=== PATIENT | female | born 1975 | race Caucasian/White ===

== ENCOUNTER → 2016-08-05 | Outpatient (CLI) | payer BC ==
--- OUTSIDE RECORDS SUMMARY | 2016-08-05 09:21 | XMS REPORT | Continuity of Care Document ---
Author Author [facility] Organization [facility] Address Unknown Phone Unavailable Allergies Medications Problems Date Dx Coded Attending Type Code Diagnosis Diagnosed By 08/15/2014 Ot V76.12 08/05/2015 KELVIN BERRY MD Ot V76.12 08/05/2015 Ot V76.12 08/05/2015 CAMILLE MENDEZ APRN Ot Z12.31 08/20/2015 CAMILLE MENDEZ APRN Ot Z12.31 Procedures Results Encounters ACCT No. Visit Date/Time Discharge Status Pt. Type Provider Facility Loc./Unit Complaint [id number] 03/21/2013 09:02:00 2012 23:59:59 CLS Outpatient KELVIN BERRY MD [facility] RAD [id number] 08/05/2015 09:51:00 ACT Outpatient CAMILLE MENDEZ APRN [facility] RAD [id number] 08/01/2014 14:28:00 Document Registration
--- NOTE | 2016-08-06 18:23 | Diagnostic Imaging Report ---
Bilateral screening mammogram. The current study was also evaluated with a Computer Aided Detection (CAD) system. INDICATION: Screening. No current complaints stated on the questionnaire. COMPARISON: 08/05/2015. FINDINGS: The breasts are composed of scattered fibroglandular densities. There are occasional benign-appearing calcifications. Allowing for technique and positional differences, no suspicious change is seen. IMPRESSION: No significant change. ACR BI-RADS Category 2: Benign findings. Result letter will be mailed to the patient. Note: At least 10% of breast cancer is not imaged by mammography. Dictated by: Dictated on workstation # [id number]
== END ==
LOC: RAD 09:18
PROVIDERS: ATTEND Family Medicine
DX: Z12.31 Encounter for screening mammogram for malignant neoplasm of breast (principal)
CPT/HCPCS: 77067

== ENCOUNTER → 2017-08-08 | Outpatient (CLI) | payer BC ==
--- NOTE | 2017-08-08 13:08 | Diagnostic Imaging Report ---
INDICATION: Routine screening. COMPARISON: 08/05/2016, 08/05/2015. TECHNIQUE: Screening digital mammography was performed bilaterally with a Computer Aided Detection (CAD) system. FINDINGS: Scattered fibroglandular densities are identified bilaterally. The overall parenchymal pattern appears to be stable. No dominant mass or malignant appearing microcalcifications are seen. The axillae are unremarkable. IMPRESSION: No mammographic features suspicious for malignancy are identified. ACR BI-RADS Category 1: Negative. Result letter will be mailed to the patient. Note: At least 10% of breast cancer is not imaged by mammography. Dictated by: Dictated on workstation # [id number]
== END ==
LOC: RAD 10:16
PROVIDERS: ATTEND Nurse Practitioner Family
DX: Z12.31 Encounter for screening mammogram for malignant neoplasm of breast (principal)
CPT/HCPCS: 77067

== ENCOUNTER → 2018-08-25 | Outpatient (CLI) | payer BC ==
--- NOTE | 2018-08-29 10:00 | Diagnostic Imaging Report ---
EXAMINATION: Digital mammogram bilateral screening with 3D tomosynthesis and CAD. INDICATION: Screening. COMPARISON: This study is compared to the prior exams of 08/08/2017, 08/05/2016, and 08/05/2015. PERSONAL HISTORY: At this time, there are no current complaints. FINDINGS: The fibroglandular tissue in both breasts is heterogeneously dense. This does limit the sensitivity of this exam. In the interval since the prior study, a small group of microcalcifications has developed in the 12 o'clock position of the left breast roughly 12 cm from the nipple. These calcifications have a generally benign appearance but I would recommend that a compression/magnification view be obtained to better characterize them. Also, in the 3 o'clock position of the left breast at posterior depth, there is a 1 cm vague area of increased density. This may merely be secondary to fibroglandular tissue alone but I would recommend that a compression view of this area be obtained as well. If this density persists, then ultrasound may be necessary as well. The right breast is unchanged. IMPRESSION: Additional mammographic views of the left breast would be recommended for further study. Ultrasound may also be necessary. ACR BI-RADS Category 0: Incomplete. (Needs additional imaging evaluation). Result letter will be mailed to the patient. Note: At least 10% of breast cancer is not imaged by mammography. Dictated on workstation # [id number]
== END ==
LOC: RAD 15:08
PROVIDERS: ATTEND Nurse Practitioner Family
DX: Z12.31 Encounter for screening mammogram for malignant neoplasm of breast (principal)
CPT/HCPCS: 77067

== ENCOUNTER → 2018-09-07 | Outpatient (CLI) | payer BC ==
--- NOTE | 2018-09-07 20:50 | Diagnostic Imaging Report ---
INDICATION: Left breast calcifications and left breast density. Patient presents for additional views. COMPARISON: Correlation is made with recent screening study from 08/25/2018. EXAMINATION: Conventional 90 degree lateral view as well as magnification CC and MLO as well as spot compression ML views were obtained. FINDINGS: Calcifications in the upper aspect of the left breast appear to be round and benign. No pleomorphism is seen. Density in the lower outer left breast is noted approximately 9 cm from the nipple. This does persist on additional views. Further evaluation with ultrasound is recommended and will be performed today. IMPRESSION: 1. Benign calcifications in the superior left breast. 2. Persistent nodular density in the slightly lower outer left breast, 9 cm from nipple. Further evaluation with ultrasound is recommended. ACR BI-RADS Category 0: Incomplete. (Needs additional imaging evaluation). Result letter will be mailed to the patient. Note: At least 10% of breast cancer is not imaged by mammography. Dictated by: Dictated on workstation # [id number]
--- NOTE | 2018-09-07 20:56 | Diagnostic Imaging Report ---
INDICATION: Abnormal left mammogram. This study was performed for further evaluation. COMPARISON: Correlation is made with a diagnostic mammogram earlier the same day as well as the screening mammogram from 08/25/2018. EXAMINATION: Sonographic interrogation of the outer left breast was performed. There is a cystic-appearing mass at the 3:30 location, 7 cm from the nipple. This most likely represents either a septated cyst versus a cluster of cysts. In aggregate, this measures 11 mm x 4 mm x 6 mm. No posterior acoustic shadowing is present. There is mild posterior acoustic enhancement present. No internal vascularity is present. IMPRESSION: A cluster of cysts versus a complex cyst at the 3:30 location in the left breast, 7 cm from the nipple. This correlates in size and location to the mammographic nodule. This has fairly benign features. Even so, followup left mammogram and left breast ultrasound in six months is recommended to assure stability. ACR BI-RADS Category 3: Probably benign findings. Result letter will be mailed to the patient. Note: At least 10% of breast cancer is not imaged by mammography. Dictated by: Dictated on workstation # [id number]
== END ==
LOC: RAD 08:03
PROVIDERS: ATTEND Nurse Practitioner Family
DX: R92.1 Mammographic calcification found on diagnostic imaging of breast (principal); R92.2 Inconclusive mammogram
CPT/HCPCS: 76642

== ENCOUNTER → 2019-03-02 | Outpatient (CLI) | payer BC ==
--- NOTE | 2019-03-02 13:22 | Diagnostic Imaging Report ---
Indication: Six-month followup of a left breast density. Correlation is made with prior exam from 08/25/2018 and 08/08/2017. Unilateral left 2-D and 3-D diagnostic mammography was performed with CAD. Scattered fibroglandular densities are noted bilaterally. Area of density in the outer portion left breast mid depth appears stable. No new mass or malignant-appearing microcalcifications are seen. There are benign calcified conditions noted. Left axilla is unremarkable. IMPRESSION: BI-RADS 0 Stable left mammogram. Followup left breast ultrasound is recommended and will be performed today. Dictated by: Dictated on workstation # [id number]
--- NOTE | 2019-03-02 13:51 | Diagnostic Imaging Report ---
INDICATION: Six-month follow-up left breast cyst. Correlation is made with prior ultrasound from 09/07/2018 and diagnostic mammogram performed earlier today. Previously noted septated cyst versus cluster of cysts in the 3:30 location 7 cm from the nipple is again noted measuring 11 mm x 7 mm x 4 mm, unchanged. An additional slightly complex cyst is seen 3:00 location 7 cm from the nipple measuring 5 mm x 6 mm x 2 mm. No other masses are detected. IMPRESSION: BI-RADS Category 3 Stable left breast ultrasound. Cluster of cysts 3:30 location appears stable. Additional 6 month follow-up left mammogram and left breast ultrasound is recommended to show continued stability. ACR BI-RADS Category 3: Probably benign findings. Dictated by: Dictated on workstation # [id number]
== END ==
LOC: RAD 12:57
PROVIDERS: ATTEND Nurse Practitioner Family
DX: N60.02 Solitary cyst of left breast (principal)
CPT/HCPCS: 76642

== ENCOUNTER → 2019-09-27 | Outpatient (CLI) | payer BC ==
--- NOTE | 2019-09-27 11:01 | Diagnostic Imaging Report ---
Left breast ultrasound limited. INDICATION: Followup exam left breast cyst. FINDINGS: Previous left breast ultrasound exam of 03/02/2019 noted a cluster of cysts in the 3:30 position of the left breast. The cyst seemed stable when compared to the prior exam of 09/07/2018. On this study those cysts are again evident and do not seem to have changed significantly. I do suspect that they are benign. The diagnostic mammogram performed earlier today noted a small benign-appearing oval density in the far lateral aspect of the left breast. The ultrasound examination of this area fails to show any discrete solid or cystic mass. I suspect that the density seen on the mammogram was related to fibroglandular tissue or to a benign process. Even so, a short-term (6 month) followup mammogram and ultrasound exam of the left breast will be recommended for continued evaluation. IMPRESSION: 1. The cluster of cysts in the 3:30 position of the breast seen previously does not appear to have changed significantly. Most likely these are benign. 2. There is no sonographic abnormality to correspond to the neodensity seen on the mammogram. Recommendations as above. ACR BI-RADS Category 3: Probably benign findings. Result letter will be mailed to the patient. Note: At least 10% of breast cancer is not imaged by mammography. Dictated by: Dictated on workstation # [id number]
--- NOTE | 2019-09-27 13:35 | Diagnostic Imaging Report ---
Digital mammogram, bilateral diagnostic. Indication: Followup left breast cyst. This study was compared to the prior exams of 03/02/2019 08/25/2018, 08/08/2017 and 08/05/2016. At this time there are no current complaints. The fibroglandular tissue in both breasts is heterogeneously dense. This does limit the sensitivity of this exam. The screening mammogram performed on 08/25/2018 noted a 1 cm vague area of increased density in the 3 o'clock position of the left breast at posterior depth. This was subsequently shown to represent a cluster of cysts by ultrasound exam of 09/07/2018. These findings appear stable on the follow-up mammogram and ultrasound exam of 03/02/2019. On this exam that density is again evident and does not appear to have changed significantly. Ultrasound is pending for further study. In the interval since the prior exam, a small 7 mm fairly well circumscribed nodular density has developed in the lateral aspect of the left breast approximately 13 cm from the nipple. This density is only seen on the cc view. On the compression views of this area, this density seems to persist on one view but not on another. It does seem to be fairly well defined on the tomographic images. I would recommend that ultrasound of this portion of the breast be performed for further study. The right breast is stable. Impression: 1. The nodular density in the left breast seen previously appears stable. There is also a new neodensity in the lateral aspect of the left breast. Ultrasound would be recommended for further evaluation of both these findings. 2. The right breast is unchanged. ACR BI-RADS Category 0: Incomplete. (Needs additional imaging evaluation). Result letter will be mailed to the patient. Note: At least 10% of breast cancer is not imaged by mammography. Dictated by: Dictated on workstation # [id number]
== END ==
LOC: RAD 09:03
PROVIDERS: ATTEND Nurse Practitioner Family
DX: Z09 Encounter for follow-up examination after completed treatment for conditions other than malignant neoplasm (principal); N60.02 Solitary cyst of left breast
CPT/HCPCS: 76642; 77062; 77066

== ENCOUNTER → 2020-05-05 | Outpatient (CLI) | payer BC ==
--- NOTE | 2020-05-05 20:48 | Diagnostic Imaging Report ---
Ultrasound left wrist, limited. INDICATION: Indication abnormal mammogram The left breast ultrasound exam performed on 09/07/2018 noted a cluster of cysts in the 3:30 position of the left breast approximately 7 cm from the nipple. These findings appeared stable on the subsequent ultrasound examinations of 03/02/2019 and 09/27/2019. On this exam, the hypoechoic area with internal echoes in the 3:30 position of the left breast seen previously is again evident and does not appear to have changed significantly. This is most likely due to a cyst which has been complicated by infection and/or hemorrhage. I would recommend the patient have a six-month follow-up ultrasound exam when she has her annual bilateral screening mammogram in September/October of next year. If this area appears stable on the follow-up exam, then no further imaging surveillance would be required. IMPRESSION: The small hypoechoic area with internal echoes seen previously is again evident and appears stable. Most likely this is a benign process. Recommendations as above. ACR BI-RADS Category 3: Probably benign findings. Result letter will be mailed to the patient. Note: At least 10% of breast cancer is not imaged by mammography. Dictated by: Dictated on workstation # [id number]
--- NOTE | 2020-05-05 22:00 | Diagnostic Imaging Report ---
EXAM: Diagnostic left mammogram INDICATION: Follow-up nodular density The previous diagnostic mammogram and ultrasound exams of 09/27/2019 noted a stable appearing nodular density in the midportion of the left breast. There was also a small neodensity along the lateral aspect of the left breast. Those findings are again evident on this study have not hanged significantly. The fibroglandular tissue in the left breast is heterogeneously dense and this does limit the sensitivity of this exam. Overall, there has been no significant change. There is no primary or secondary sign of malignancy noted. IMPRESSION: 1. The appearance of the left breast is stable when compared to the prior exam. 2. Ultrasound is pending for further study. ACR BI-RADS Category 0: Incomplete. (Needs additional imaging evaluation). Result letter will be mailed to the patient. Note: At least 10% of breast cancer is not imaged by mammography. Dictated by: Dictated on workstation # [id number]
== END ==
LOC: RAD 12:45
PROVIDERS: ATTEND Nurse Practitioner Family
DX: R92.2 Inconclusive mammogram (principal)
CPT/HCPCS: 76642; 77065; G0279

== ENCOUNTER → 2021-04-06 | Outpatient (CLI) | payer BC ==
--- NOTE | 2021-04-06 13:38 | Diagnostic Imaging Report ---
Indication: Left breast density, follow-up. Correlation is made with prior mammogram 05/05/2020, 09/27/2019 and 03/02/2019. 2-D and 3-D bilateral dynastic mammography was performed with CAD. The density in the lateral left breast appears less prominent on today's study. Sonographically this appear to represent a cluster of cysts. No new mass is seen. No malignant-appearing microcalcifications are identified. There are benign calcifications present. Axillae are unremarkable. IMPRESSION: Density in the lateral left breast is less prominent on today's study, perhaps diminution of cirrhosis. Further evaluation this area with ultrasound is recommended and will be performed today. No new abnormalities detected. BI-RADS 0 ACR BI-RADS Category 0: Incomplete. (Needs additional imaging evaluation). Result letter will be mailed to the patient. Note: At least 10% of breast cancer is not imaged by mammography. Dictated by: Dictated on workstation # [id number]
--- NOTE | 2021-04-06 15:05 | Diagnostic Imaging Report ---
INDICATION: Left breast cluster of cysts. Patient presents for follow-up. CORRELATION is made with diagnostic mammogram earlier the same day and prior left breast ultrasound from 05/05/2020. Previously noted cluster of cysts at the 3:30 location of the left breast, 7 cm from the nipple does appear to be slightly smaller, measuring 1.0 x 0.3 x 0.7 cm compared with 1.1 x 0.4 x 0.7 cm. No internal vascularity is present. No new abnormality is identified. IMPRESSION: BI-RADS Category 2 Stable to perhaps slight decrease in size of cluster of cysts at the 3:30 location in the left breast, 7 cm from the nipple. This now shows 2-1/2 years of stability. The patient may return to routine annual screening mammography. Dictated by: Dictated on workstation # [id number]
== END ==
LOC: RAD 12:58
PROVIDERS: ATTEND Nurse Practitioner Family
DX: N60.02 Solitary cyst of left breast (principal)
CPT/HCPCS: 76642; 77066; G0279; 77062

== ENCOUNTER 2022-04-28 22:48 | Emergency (ER) | payer BC ==
[~2022-04-28] VITALS: Ht 160 cm; Wt 90.7 kg
[2022-04-28 23:13] LABS: BASOPHILS # (AUTO) 0.1 10^3/uL (0.0-0.1); BASOPHILS % (AUTO) 0 % (0-10); EOSINOPHILS # (AUTO) 0.1 10^3/uL (0.0-0.3); EOSINOPHILS % (AUTO) 1 % (0-10); HEMATOCRIT 42 % (35-52); HEMOGLOBIN 14.8 g/dL (11.5-16.0); LYMPHOCYTES % (AUTO) 16 % (12-44); MEAN CORPUSCULAR HEMOGLOBIN 31 pg (25-34); MEAN CORPUSCULAR HGB CONC 35 g/dL (32-36); MEAN CORPUSCULAR VOLUME 87 fL (80-99); MEAN PLATELET VOLUME 8.4 fL (9.0-12.2); MONOCYTES # (AUTO) 0.7 10^3/uL (0.0-1.0); MONOCYTES % (AUTO) 6 % (0-12); NEUTROPHILS # (AUTO) 9.7 10^3/uL (1.8-7.8); NEUTROPHILS % (AUTO) 77 % (42-75); PLATELET COUNT 293 10^3/uL (130-400); WHITE BLOOD COUNT 12.6 10^3/uL (4.3-11.0)
[2022-04-28] MEDS ORDERED: NITROGLYCERIN 0.4 MG SL TABS BTL 25'S SL PRN (23:15)
[2022-04-28] MEDS ORDERED: ASPIRIN 81 MG CHEW (CHILDREN'S ASA) PO ONE (23:15)
[2022-04-28 23:23] LABS: ALBUMIN 4.5 GM/DL (3.2-4.5)
[2022-04-28 23:24] LABS: POTASSIUM 3.5 MMOL/L (3.6-5.0)
[2022-04-28 23:25] LABS: CALCIUM 9.4 MG/DL (8.5-10.1)
[2022-04-28 23:26] LABS: TOTAL PROTEIN 7.6 GM/DL (6.4-8.2)
[2022-04-28 23:28] LABS: BILIRUBIN,TOTAL 0.3 MG/DL (0.1-1.0)
[2022-04-28 23:32] LABS: MAGNESIUM 1.5 MG/DL (1.6-2.4)
[2022-04-28 23:40] LABS: CREATINE KINASE MB 0.9 NG/ML (<6.6)
[2022-04-28] MEDS ORDERED: PANTOPRAZOLE 40 MG (PROTONIX) VIAL ONE (23:44)
[2022-04-29] MEDS ORDERED: IOHEXOL 350 MG/ML 100 ML (OMNIPAQUE 350) VIAL IV ONE (02:15)
[2022-04-29] MEDS ORDERED: CATHETER FLUSH 10 ML SYR IV PRN (02:15)
[2022-04-29] MEDS ORDERED: NS 100 ML (IVPB) BAG IV ONE (02:15)
[2022-04-29 02:16] LABS: INR 0.9 (0.8-1.4); PROTHROMBIN TIME PATIENT 13.1 SEC (12.2-14.7)
[2022-04-29] MEDS ORDERED: PANT40TA2 PO (02:18)
--- NOTE | 2022-04-29 02:18 | ED General ---
General Chief Complaint: Chest Pain Stated Complaint: ABD PAIN Nursing Triage Note: PT TO RM 2 WITH CC OF EPIGASTRIC PAIN THAT HAS MOVED INTO THE MIDDLE OF HER CHEST BEGGINING AROUND 1930. PT STATES SHE BELIEVES THE PAIN IS HEART BURN. PT DENIES HEART HISTORY. Source of Information: Patient History of Present Illness Date Seen by Provider: Apr 28, 2022 Time Seen by Provider: 23:05 Initial Comments PT ARRIVES VIA POV FROM HOME WITH PT STATES SHE BEGAN HAVING EPIGASTRIC PAIN RADIATING UP TO MID CHEST, SINCE AROUND 1930 TONIGHT PAIN BEGAN WHILE SITTING ON COUCH PAIN WAS HIGH 7/10, IS 5/10 NOW PAIN IS CONSTANT NO RADIATION OF PAIN NOTHING WORSENS OR IMPROVES PAIN + NAUSEA, AND VOMITED X 1 AND IT DID IMPROVE PAIN NO SHORTNESS OF BREATH HAS HAD A VERY SLIGHT NON-PRODUCTIVE COUGH NO DYSPNEA NO SWEATS NO SWELLING IN LEGS/FEET OR PAIN IN CALVES NO PALPITATIONS NO DIZZINESS OR SYNCOPE NO HISTORY OF SIMILAR HAS NOT TAKEN ANYTHING FOR SYMPTOMS SHE HAS HISTORY OF HTN, HYPERLIPIDEMIA, AND IS PRE-DIABETIC. HER ONLY MEDICATION IS METOPROLOL. HER ONLY SURGERY IS A TUBAL LIGATION LMP 2 WEEKS AGO. NORMAL PT DOES NOT SMOKE, RARE ETOH USE ( NONE RECENTLY), NO DRUG USE BOTH OF HER PARENTS ARE AGE 73: HER MOTHER HAD A 1 VESSEL CABG AND CAROTID SURGERY AT AGE 70--NO CARDIAC / VASCULAR PROBLEMS OR PROCEDURES PRIOR TO THAT HER FATHER HAD A SILENT OR AND HAD A PACEMAKER / DEFIBRILLATOR PLACED AT AGE 72. HE HAD NO PRIOR CARDIAC PROBLEMS OR PROCEDURES PRIOR TO THAT. PCP: DR. BERRY Allergies and Home Medications Allergies Coded Allergies: No Known Drug Allergies (Unverified , 04/28/22) Patient Home Medication List Home Medication List Reviewed: Yes Pantoprazole Sodium (Protonix) 40 Mg Tablet.dr 40 MG PO DAILY Prescribed by: STACI THOMAS on 04/29/22 0218 Review of Systems Review of Systems Constitutional: no symptoms reported EENTM: no symptoms reported Respiratory: no symptoms reported Cardiovascular: see HPI Gastrointestinal: see HPI Genitourinary: no symptoms reported : No LMP: Apr 14, 2022 Musculoskeletal: no symptoms reported Skin: no symptoms reported Psychiatric/Neurological: No Symptoms Reported Hematologic/Lymphatic: No Symptoms Reported Immunological/Allergic: no symptoms reported Past Afgmuaf-Asylrj-Yjmpsv Hx Patient Social History Tobacco Use?: No Smoking Status: Never a Smoker Smokeless Tobacco Frequency: Never a User Use of E-Cig and/or Vaping Mino: Never a User Substance use?: No Alcohol Use?: Yes Alcohol Frequency: Rarely Pt feels they are or have been: No Past Medical History Surgery/Hospitalization HX: HTN Surgeries: Yes Tubal Ligation Respiratory: No Cardiac: Yes Hypertension Neurological: No : 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 oz. kg; 35.00 BMI Method: General Appearance: No Apparent Distress, WD/WN, Obese HEENT: PERRL/EOMI Neck: Normal Inspection; No Carotid Bruit, No JVD Respiratory: Chest Non Tender, Normal Breath Sounds, No Accessory Muscle Use, No Respiratory Distress Cardiovascular: Regular Rate, Rhythm, No Edema, No JVD, No Murmur, Normal Peripheral Pulses Gastrointestinal: Normal Bowel Sounds, No Organomegaly, No Pulsatile Mass, Soft; No Distended, No Guarding, No Hernia, No Mass, No Rebound; Tenderness (MILD EPIGASTRIC TENDERNESS) Back: Normal Inspection, No CVA Tenderness, No Vertebral Tenderness Extremity: Normal Capillary Refill, Normal Inspection, Normal Range of Motion, Non Tender, No Calf Tenderness, No Pedal Edema Neurologic/Psychiatric: Alert, Oriented x3, No Motor/Sensory Deficits, Normal Mood/Affect, [employer] stitcher II-XII Norm as Tested Skin: Normal Color, Warm/Dry; No Rash Progress/Results/Core Measures Suspected Sepsis SIRS Temperature: Pulse: 86 Respiratory Rate: 22 Laboratory Tests 04/28/22 23:08: White Blood Count 12.6H Blood Pressure 152 /96 Mean: 114 Laboratory Tests 04/28/22 23:08: Creatinine 1.00, INR Comment 0.9, Platelet Count 293, Total Bilirubin 0.3 Results/Orders Lab Results Laboratory Tests Test 04/28/22 23:08 04/29/22 01:37 Range/Units White Blood Count 12.6 H 4.3-11.0 10^3/uL Red Blood Count 4.84 3.80-5.11 10^6/uL Hemoglobin 14.8 11.5-16.0 g/dL Hematocrit 42 35-52 % Mean Corpuscular Volume 87 80-99 fL Mean Corpuscular Hemoglobin 31 25-34 pg Mean Corpuscular Hemoglobin Concent 35 32-36 g/dL Red Cell Distribution Width 12.2 10.0-14.5 % Platelet Count 293 130-400 10^3/uL Mean Platelet Volume 8.4 L 9.0-12.2 fL Immature Granulocyte % (Auto) 0 % Neutrophils (%) (Auto) 77 H 42-75 % Lymphocytes (%) (Auto) 16 12-44 % Monocytes (%) (Auto) 6 0-12 % Eosinophils (%) (Auto) 1 0-10 % Basophils (%) (Auto) 0 0-10 % Neutrophils # (Auto) 9.7 H 1.8-7.8 10^3/uL Lymphocytes # (Auto) 2.0 1.0-4.0 10^3/uL Monocytes # (Auto) 0.7 0.0-1.0 10^3/uL Eosinophils # (Auto) 0.1 0.0-0.3 10^3/uL Basophils # (Auto) 0.1 0.0-0.1 10^3/uL Immature Granulocyte # (Auto) 0.1 0.0-0.1 10^3/uL Prothrombin Time 13.1 12.2-14.7 SEC INR Comment 0.9 0.8-1.4 Activated Partial Thromboplast Time 27 24-35 SEC D-Dimer 0.45 0.00-0.49 UG/ML Sodium Level 136 135-145 MMOL/L Potassium Level 3.5 L 3.6-5.0 MMOL/L Chloride Level 101 98-107 MMOL/L Carbon Dioxide Level 24 21-32 MMOL/L Anion Gap 11 5-14 MMOL/L Blood Urea Nitrogen 13 7-18 MG/DL Creatinine 1.00 0.60-1.30 MG/DL Estimat Glomerular Filtration Rate 69 BUN/Creatinine Ratio 13 Glucose Level 228 H 70-105 MG/DL Calcium Level 9.4 8.5-10.1 MG/DL Corrected Calcium 9.0 8.5-10.1 MG/DL Magnesium Level 1.5 L 1.6-2.4 MG/DL Total Bilirubin 0.3 0.1-1.0 MG/DL Aspartate Amino Transf (AST/SGOT) 40 H 5-34 U/L Alanine Aminotransferase (ALT/SGPT) 57 H 0-55 U/L Alkaline Phosphatase 78 40-136 U/L Total Creatine Kinase 65 29-168 U/L Creatine Kinase MB 0.9 <6.6 NG/ML Myoglobin 36.8 10.0-92.0 NG/ML Troponin I < 0.028 < 0.028 <0.028 NG/ML B-Type Natriuretic Peptide < 10.0 <100.0 PG/ML Total Protein 7.6 6.4-8.2 GM/DL Albumin 4.5 3.2-4.5 GM/DL Amylase Level 58 25-125 U/L Lipase 29 8-78 U/L Serum Test, Qualitative NEGATIVE NEGATIVE My Orders Orders - STACI THOMAS DO Ed Iv/Invasive Line Start (04/28/22 23:02) Ekg Tracing (04/28/22 23:02) O2 (04/28/22 23:02) Monitor-Rhythm Ecg Trace Only (04/28/22:02) Cbc With Automated Diff (04/28/22:) Magnesium (04/28/22:02) Chest 1 View, Ap/Pa Only (04/28/22 23:02) Ekg Tracing (04/28/22 23:02) Comprehensive Metabolic Panel (04/28/22:) Myoglobin Serum (04/28/22 23:02) Protime With Inr (04/28/22:) Partial Thromboplastin Time (04/28/22:02) O2 (04/28/22 23:02) Ed Iv/Invasive Line Start (04/28/22:) Creatine Kinase (04/28/22 23:02) Creatine Kinase Mb (04/28/22 23:02) Lipase (04/28/22 23:02) Amylase (04/28/22 23:02) Bnp Arturo (04/28/22 23:02) Fibrin Degradation Products (04/28/22 23:02) Troponin I Arturo (04/28/22 23:02) Nitroglycerin 0.4 Mg Btl 25's (Nitrostat (04/28/22 23:15) Aspirin Chewable Tablet (Baby Aspirin Ch (04/28/22 23:15) Hcg,Qualitative Serum (04/28/22 23:02) Pantoprazole Injection (Protonix Injecti (04/28/22 23:44) Ct Paula Chest/Noang Abd-Pelv W (04/29/22 ) Troponin I Walker (04/29/22 01:37) Iohexol Injection (Omnipaque 350 Mg/Ml 1 (04/29/22 02:15) Sodium Chloride Flush (Catheter Flush Sy (04/29/22 02:15) Ns (Ivpb) (Sodium Chloride 0.9% Ivpb Bag (04/29/22 02:15) Medications Given in ED Current Medications Medications Dose Ordered Sig/Wood Route Start Time Stop Time Status Last Admin Dose Admin Aspirin 324 mg ONCE ONCE PO 04/28/22 23:15 04/28/22 23:16 DC 04/28/22 23:13 324 MG Iohexol 100 ml ONCE ONCE IV 04/29/22 02:15 04/29/22 02:16 DC 04/29/22 02:17 90 ML Nitroglycerin 0.4 mg UD PRN SL 04/28/22 23:15 04/29/22 02:24 DC 04/28/22 23:13 0.4 MG Pantoprazole 40 mg STK-MED ONCE .ROUTE 04/28/22 23:44 04/28/22 23:46 DC 04/28/22 23:40 40 MG Sodium Chloride 10 ml NEEDED PRN IV 04/29/22 02:15 04/29/22 02:24 DC 04/29/22 02:17 10 ML Sodium Chloride 100 ml ONCE ONCE IV 04/29/22 02:15 04/29/22 02:16 DC 04/29/22 02:17 80 ML Vital Signs/I&O 04/28/22 04/29/22 22:58 02:20 Temp 36.6 Pulse 86 95 Resp 22 16 B/P (MAP) 152/96 (114) 129/89 Pulse Ox 98 95 O2 Delivery Room Air Room Air Capillary Refill : Less Than 3 Seconds Blood Pressure Mean: 114 Progress Note : Progress Note PT WAS SEEN DURING COMPUTER DOWN TIME GIVEN: -ASPIRIN -NTG X 1 -PROTONIX SYMPTOMS RELIEVED WITH THE ABOVE PT SLEPT FOR MOST OF REMAINDER OF ER STAY REVIEWED TEST RESULTS, NEED FOR FOLLOW UP AND RETURN PRECAUTIONS DISCUSSED POSSIBLE ETIOLOGIES INCLUDING GALLBLADDER DISEASE, GERD/ULCERS, AND CARDIAC DISCUSSED POSSIBLE ADDITIONAL OUTPATIENT TESTING INCLUDING FURTHER GI STUDIES SUCH ULTRASOUND, HIDA SCAN, EGD/COLONOSCOPY, WELL OUTPATIENT STRESS TEST OR OTHER OUTPATIENT CARDIAC TESTING. ECG Initial ECG Impression Date: Apr 28, 2022 Initial ECG Impression Time: 23:09 Initial ECG Rate: 87 Initial ECG Rhythm: Normal Sinus Initial ECG Impression: Nonspecific Changes Diagnostic Imaging Comments CXR--NO ACUTE PROCESS, PENDING RADIOLOGIST REVIEW CT CHEST ANGIOGRAM/ ABDOMEN - PELVIS--PER [facility] VIA FAX AT 0131 -NO P.E. -MILD DEPENDENT ATELECTASIS WITH SMALL PERIPHERAL INFILTRATES VS ATELECTASIS -SCATTERED DIVERTICULOSIS WITHOUT DIVERTICULITIS -PERIPHERALLY ENHANCING RIGHT OVARIAN CYST. -NO OBSTRUCTING CALCULUS. SMALL AMOUNT OF HYPERDENSE MATERIAL LAYING DEPENDENTLY IN URINARY BLADDER, MAY REPRESENT CONTRAST VS SMALL STONES. -ENLARGED FATTY LIVER. Reviewed: Reviewed by Me Departure Impression Primary Impression: Chest pain Additional Impressions: Epigastric pain Hyperglycemia Disposition: 01 HOME, SELF-CARE Condition: Improved Departure-Patient Inst. Decision time for Depature: 02:15 Referrals: KELVIN BERRY MD (PCP/Family) Primary Care Physician Patient Instructions: Abdominal Pain, Adult ED, Chest Pain (DC), High Blood Sugar, Adult ED Add. Discharge Instructions: CLEAR LIQUIDS--WATER, BROTH, JELLO, GATORADE BRATS DIET--BANANAS, RICE, APPLESAUCE, TOAST, SALTINES FOLLOW UP WITH DR. BERRY THIS WEEK FOR FURTHER CARE, CALL THIS MORNING TO SCHEDULE AN APPOINTMENT RETURN TO ER IF SYMPTOMS WORSEN All discharge instructions reviewed with patient and/or family. Voiced understanding. Scripts Pantoprazole Sodium (Protonix) 40 Mg Tablet. 40 MG PO DAILY, #15 TAB Prov: STACI THOMAS DO 04/29/22 STACI THOMAS DO Apr 29, 2022 02:18
[2022-04-29 02:20] VITALS: BP 129/89
--- NOTE | 2022-04-29 06:08 | Diagnostic Imaging Report ---
EXAMINATION: Chest 1 view HISTORY: Chest pain COMPARISON: None available. FINDINGS: Heart size and pulmonary vasculature are normal. The lungs are clear without consolidation, pleural effusion, or pneumothorax. The osseous structures are intact. IMPRESSION: 1. No acute radiographic abnormality in the chest. Dictated by: Dictated on workstation # [id number]
--- NOTE | 2022-04-29 06:38 | Diagnostic Imaging Report ---
EXAMINATION: CT angiography of the chest, CT of the abdomen and pelvis. TECHNIQUE: Contrast enhanced thin section helical images were obtained through the chest, abdomen and pelvis with intravenous contrast timed for the optimal opacification of the arterial structures of the chest per CTA protocol. Post-processing, reconstructions and interpretation of angiographic images of the vessels was performed. 3D MIP reconstructions were performed and reviewed. All CT scans use one or more of the following dose optimizing techniques: automated exposure control, MA and/or KvP adjustment based on a patient size and exam type, or iterative reconstruction. HISTORY: CHEST PAIN COMPARISON: None available. FINDINGS: Vascular: No filling defects within the pulmonary arteries. Thoracic aorta is normal in caliber. Thyroid: The thyroid is normal. Mediastinum: Heart size is normal without significant pericardial effusion. No suspicious lymphadenopathy. Lungs and airways: The lungs are clear without consolidation, pleural effusion, or pneumothorax. Mild dependent atelectasis. The airways are normal. Solid organs: There is diffuse hypoattenuation liver which is hepatic steatosis. The gallbladder is normal. There is no biliary ductal dilation. Pancreas is normal. Spleen is normal. Adrenal glands are normal. The kidneys are normal without hydronephrosis. Bowel: The stomach and small bowel are normal without obstruction. There are a few scattered colonic diverticula. No findings of acute appendicitis. Peritoneum: There is no intraperitoneal free fluid or free air. No suspicious lymphadenopathy. Vasculature: Normal without aneurysm. Musculoskeletal: No suspicious osseous lesion or compression fracture. Pelvis: The uterus and adnexa are normal. The urinary bladder is normal. IMPRESSION: 1. No findings of pulmonary embolus or other acute abnormality in the chest. 2. No acute abnormality in the abdomen or pelvis. 3. Hepatic steatosis. 4. Agree with preliminary interpretation. Dictated by: Dictated on workstation # [id number]
[2022-04-30] MEDS ORDERED: ALPR0.5T PO (11:34)
[2022-04-30] MEDS ORDERED: PROM25TA14 PO (11:34)
[2022-04-30] MEDS ORDERED: METO-333 PO (11:34)
[2022-04-30] MEDS ORDERED: DOCU-143 PO (16:10)
[2022-04-30] MEDS ORDERED: ACHD5005 PO (16:10)
== END 2022-04-29 02:23 | disposition home or self-care (01) ==
LOC: EDUNIT# 22:48 → ER 22:50
DX: R10.13 Epigastric pain (principal); R07.9 Chest pain, unspecified; R73.9 Hyperglycemia, unspecified
CPT/HCPCS: 36415; 71045; 71275; 74177; 80053; 82150; 82550; 82553; 83690; 83735; 83874; 83880; 84484; 84703; 85025; 85379; 85610; 85730; 93005; 93041

== ENCOUNTER → 2022-04-29 | Outpatient (CLI) | payer BC ==
[~2022-04-29] MED LIST: ACHD5005 PO; ALPR0.5T PO; DOCU-143 PO; METO-333 PO; PANT40TA2 PO; PROM25TA14 PO
--- NOTE | 2022-04-29 15:17 | Diagnostic Imaging Report ---
PROCEDURE: US Gallbladder. TECHNIQUE: Multiple real-time grayscale images were obtained over the right upper quadrant in various projections. INDICATION: Epigastric pain. COMPARISON: CT abdomen from earlier same day. FINDINGS: Marked increased echogenicity of the liver is indicative of severe hepatic steatosis. There is some focal fatty sparing around the gallbladder fossa. The liver is borderline enlarged measuring 18.5 cm in length. No focal hepatic lesion. Gallbladder has multiple shadowing and layering gallstones present. The common bile duct measures up to 0.4 cm in diameter. No intrahepatic biliary dilation. The visualized portions of the pancreas are normal. Portions of the head and tail are obscured by overlying bowel gas. The right kidney is normal in size. No hydronephrosis, shadowing calculi, or suspicious mass lesion. IMPRESSION: 1. Cholelithiasis without sonographic features of acute cholecystitis. 2. Severe hepatic steatosis. Dictated by: Dictated on workstation # [id number]
== END ==
LOC: RAD 14:30
PROVIDERS: ATTEND Family Medicine
DX: K80.20 Calculus of gallbladder without cholecystitis without obstruction (principal); K76.0 Fatty (change of) liver, not elsewhere classified
CPT/HCPCS: 76705

== ENCOUNTER 2022-04-30 11:13 | Day surgery (SDC) | payer BC ==
[2022-04-30] VITALS (11 sets, daily range): BP systolic 120–149; BP diastolic 85–107
[~2022-04-30] VITALS: Ht 160 cm; Wt 101.8 kg
[~2022-04-30 11:13] MED LIST changes: -ACHD5005 PO; -ALPR0.5T PO; -DOCU-143 PO; -METO-333 PO; -PROM25TA14 PO
[2022-04-30] MEDS ORDERED: ceFAZolin INJECTION 2,000 MG in NS (IVPB) 50 ML IV ONE (11:30)
[2022-04-30] MEDS ORDERED: METO-333 PO (11:34)
[2022-04-30] MEDS ORDERED: ALPR0.5T PO (11:34)
[2022-04-30] MEDS ORDERED: PROM25TA14 PO (11:34)
[2022-04-30] MEDS ORDERED: LACTATED RINGERS 1,000 ML IV PRN (11:45)
--- NOTE | 2022-04-30 11:53 | Progress Note-Pre Operative ---
Pre-Operative Progress Note Date of Available H&P: Apr 30, 2022 Date H&P Reviewed: Apr 30, 2022 Time H&P Reviewed: 11:53 History & Physical: H&P Reviewed, Patient Examed, No changes noted Pre-Operative Diagnosis: cholelithiasis, ruq abdominal pain STACI CULVER DO Apr 30, 2022 11:53
[2022-04-30] MEDS ORDERED: GLYCOPYRROLATE 0.2 MG/ML (ROBINUL) 2 ML VIAL ONE (13:01)
[2022-04-30] MEDS ORDERED: ROCURONIUM 10 MG/ML 5 ML SYRINGE IV ONE (13:01)
[2022-04-30] MEDS ORDERED: LIDOCAINE PF 2% 5 ML (XYLOCAINE) VIAL ONE (13:01)
[2022-04-30] MEDS ORDERED: ONDANSETRON 4 MG/2 ML (SDV) Z0FRAN ONE (13:01)
[2022-04-30] MEDS ORDERED: proPOfol 200 MG/20 ML (DIPRIVAN) VIAL IV ONE (13:01)
[2022-04-30] MEDS ORDERED: fentaNYL INJ 100 MCG/2 ML AMP ONE (13:01)
[2022-04-30] MEDS ORDERED: MIDAZOLAM 2 MG/2 ML (VERSED) VIAL ONE (13:02)
[2022-04-30] MEDS ORDERED: ESMOLOL 100 MG/10 ML (BREVIBLOC) VIAL ONE (13:07)
[2022-04-30] MEDS ORDERED: ONDANSETRON 4 MG/2 ML (SDV) Z0FRAN IVP PRN (13:15)
[2022-04-30] MEDS ORDERED: HYDROmorphone 2 MG/ML VIAL (DILAUDID) IV ONE (13:15)
[2022-04-30] MEDS ORDERED: morphine INJ 10 MG/ML 1ML (SYR OR VIAL) IVP ONE (13:15)
[2022-04-30] MEDS ORDERED: BUP/EPI 0.25% 1:200,000 (MARCAINE) 30 ML VIAL ONE (13:42)
[2022-04-30] MEDS ORDERED: HYDROmorphone 2 MG/ML VIAL (DILAUDID) ONE (15:29)
[2022-04-30] MEDS ORDERED: SUGAMMADEX 500 MG/5 ML VIAL (BRIDION) IV ONE (16:02)
[2022-04-30] MEDS ORDERED: SEVOFLURANE (ULTANE) 15 ML INHAL SOLN ONE (16:03)
--- NOTE | 2022-04-30 16:07 | Progress Note-Post Operative ---
Post-Operative Progess Note Surgeon (s)/Electric Powerline Examiner (s) Surgeon STACI CULVER DO Electric Powerline Examiner: Dr. Gottlieb to assist in retraction dissection and closure. Pre-Operative Diagnosis cholelithiasis, ruq abdominal pain Post-Operative Diagnosis hydrops gallbladder, cholelithiasis, acute cholecystitis. Procedure & Operative Findings Date of Procedure 04/30/22 Procedure Performed/Findings PROCEDURE: Laparoscopic cholecystectomy with intraoperative cholangiogram. COMPLICATIONS: None. PROCEDURE: The patient was taken to the operating suite and was prepped and draped in sterile fashion. A surgical pause was performed. Just superior to the umbilicus, a 12 mm incision was made. Dissection was taken down to the fascia, which was then scored and grasped with a Joselito and the abdomen was then entered. A 0 Vicryl suture was placed in a [id number] fashion and a Galvan trocar was placed and secured. Pneumoperitoneum was achieved. A 5mm trochar place in the subxyphoid and 2 in the right upper quadrant. The gallbladder was then grasped and decompressed, clear fluid evacuated. Significant inflammation around gallbladder along with phlegmon and thickened gallbladder wall. The gallbladder had stones fall out of it through where gall bladder was grasped. The cystic duct, was then dissected out. Clip was placed on the distal portion of the cystic duct which was then partially transected. An arrow catheter was inserted into the duct. The cholangiogram was then performed. No filing defects and contrast made its way into the duodenum. Catheter removed. Clips were placed on proximal portion of the cystic duct and then the duct was then transected. The cystic artery was then dissected out. Clips were placed along the proximal and distal portion of the cystic artery which was then transected. Hook cautery was used to dissect the gallbladder from the gallbladder fossa achieving hemostasis. The gallbladder was placed in an Endobag along with stones and removed through the 12 mm trocar site. The abdomen was then reinspected. Copious amounts of irrigation were used to irrigate the abdomen and there were no signs of active bleeding. Surgicel was placed in the gallbladder fossa. Hemostasis had been achieved. The 12 mm fascial defect was then closed with 0 Vicryl suture that had been placed in a [id number] fashion. The abdomen was then desufflated, the trocars were removed. The abdomen was then washed and dried. The skin was then closed using 4-0 Monocryl in a subcuticular fashion. The abdomen was washed and dried and Skin Affix was place over incisions. Patient tolerated the procedure well without any complications and was taken to the recovery room in stable condition. Anesthesia Type general Estimated Blood Loss Estimated blood loss (mL): minimal Specimens/Packing Specimens Removed gallbladder STACI CULVER DO Apr 30, 2022 16:07
--- NOTE | 2022-04-30 16:08 | Anesthesia-General Post-Op ---
General Patient Condition Mental Status/LOC: Same as Preop Cardiovascular: Satisfactory Nausea/Vomiting: Absent Respiratory: Satisfactory Pain: Controlled Complications: Absent Post Op Complications Complications None Follow Up Care/Instructions Patient Instructions None needed. Anesthesia/Patient Condition Patient Condition Patient is doing well in PACU with no complaints, stable vital signs, no apparent adverse anesthesia problems. No complications reported per nursing. AMBROSE ARCHULETA DO Apr 30, 2022 16:08
[2022-04-30] MEDS ORDERED: ACHD5005 PO (16:10)
[2022-04-30] MEDS ORDERED: DOCU-143 PO (16:10)
--- NOTE | 2022-04-30 16:14 | Discharge Inst-Simple/Standard ---
Discharge Inst-Standard Discharge Medications New, Converted or Re-Newed RX: Transmitted to Pharmacy Patient Instructions/Follow Up Plan of Care/Instructions/FU: 2 weeks Sindy Activity as Tolerated: No Discharge Diet: Regular Diet Other Inst to Patient Follow up Appt: Make appointment for 2 weeks. Instructions: No lifting greater than 10 pounds. No strenuous activity. May shower in 24 hours, no tub bath or soaking. Use incentive spirometer at home as directed. No Smoking Skin/Wound Care: You have special glue over incision, it will fall off on it's own. Symptoms to Report: Appetite Changes, Extremity Discoloration, Numbness/Tingling, Swelling Increased, Bleeding Excessive, Eyesight Changes, Pain Increased, Urine Color Change, Constipation(Persistent), Fever over 101 degree F, Pain/Pressure in chest, Urinating Difficulty, Cough Up/Vomit Blood, Heart Beat Irreg/Pounding, Pain/Pressure in jaw, Vaginal Bleeding Increase, Cramps in feet or legs, Lightheadedness, Pain/Pressure in shoulder, Diarrhea(Persistent), Memory Changes Suddenly, Questions/Concerns, Weight gain consecutive days, Dizziness/Fainting, Nausea/Vomiting, Shortness of Breath, Weight gain over 2 pounds. If eyes or skin turn yellow notify physician. If questions or concerns contact your physician Or seek help at emergency department. STACI CULVER DO Apr 30, 2022 16:14
--- NOTE | 2022-04-30 17:31 | Diagnostic Imaging Report ---
Reason for exam: Right upper quadrant pain. Comparison: 04/29/2022. Technique: 29 intraoperative fluoroscopic images of the right upper quadrant. Fluoroscopic Time: 7.5 seconds Findings/ Impression: Intraoperative fluoroscopic images were obtained during laparoscopic cholecystectomy. Dictated by: Dictated on workstation # [id number]
== END 2022-04-30 18:10 | disposition home or self-care (01) ==
LOC: SDC 11:13
PROVIDERS: ATTEND Surgery
DX: K80.12 Calculus of gallbladder with acute and chronic cholecystitis without obstruction (principal); K82.1 Hydrops of gallbladder; K82.8 Other specified diseases of gallbladder; E66.9 Obesity, unspecified; Z68.39 Body mass index [BMI] 39.0-39.9, adult
CPT/HCPCS: 76000; 88304

== ENCOUNTER → 2022-05-27 | Outpatient (CLI) | payer BC ==
[~2022-05-27] MED LIST changes: +ACHD5005 PO; +ALPR0.5T PO; +DOCU-143 PO; +METO-333 PO; +PROM25TA14 PO
--- NOTE | 2022-05-28 12:02 | Diagnostic Imaging Report ---
INDICATION: Routine screening Comparison is made with prior mammogram of 04/06/2021 and 09/27/2019. 2-D and 3-D bilateral screening mammography was performed with CAD. Scattered fibroglandular densities are identified bilaterally. The parenchymal pattern is stable. No mass or malignant-appearing microcalcifications are seen. Axillae are unremarkable. There are benign calcifications present. IMPRESSION: No mammographic features suspicious for malignancy are identified. ACR BI-RADS Category 2: Benign findings. Result letter will be mailed to the patient. Note: At least 10% of breast cancer is not imaged by mammography. BI-RADS Category 2 Dictated by: Dictated on workstation # [id number]
== END ==
LOC: RAD 14:54
PROVIDERS: ATTEND Family Medicine
DX: Z12.31 Encounter for screening mammogram for malignant neoplasm of breast (principal)
CPT/HCPCS: 77063; 77067